=== PATIENT | female | born 1975 | race Caucasian/White ===

== ENCOUNTER 2017-02-10 19:39 | Emergency (ER) | payer OTHER ==
[~2017-02-10] VITALS: Ht 167.6 cm; Wt 64.0 kg
[2017-02-10] MEDS ORDERED: SODIUM CHLORIDE 0.9% 1,000 ML IV ONE (20:20)
[2017-02-10 20:54] LABS: UCG SCREEN NEGATIVE
[2017-02-10 21:04] LABS: *AMPHETAMINES SCREEN URINE PRESUMTIVE POSITIVE (NEGATIVE); *BARBITURATES SCREEN URINE NEGATIVE (NEGATIVE); *BENZODIAZEPINES SCREEN URINE NEGATIVE (NEGATIVE); *COCAINE SCREEN URINE NEGATIVE (NEGATIVE); CANNABINOID URINE SCREEN NEGATIVE (NEGATIVE); METHADONE URINE SCREEN NEGATIVE (NEGATIVE); OPIATES URINE SCREEN NEGATIVE (NEGATIVE); PHENCYCLIDINE URINE SCREEN NEGATIVE (NEGATIVE)
[2017-02-10] MEDS ORDERED: LORAZEPAM 2MG/ML CPJ IV ONE (23:00)
[2017-02-11 04:52] VITALS: BP 134/80
== END 2017-02-11 06:11 | disposition home or self-care (01) ==
LOC: ER 20:20
DX: T43.621A Poisoning by amphetamines, accidental (unintentional), initial encounter (principal); F41.9 Anxiety disorder, unspecified; F31.9 Bipolar disorder, unspecified; Z59.0 Homelessness; Y92.89 Other specified places as the place of occurrence of the external cause
CPT/HCPCS: 36415; 80305; 81025; 96361; 96374; 99285; G0482; J2060; J7030; Z7610

== ENCOUNTER 2017-02-11 15:56 | Emergency (ER) | payer OTHER ==
[~2017-02-11] VITALS: Ht 162.6 cm; Wt 75.0 kg
[2017-02-11] MEDS ORDERED: MORPHINE SULFATE 4 MG/ML CPJ (NOT FOR IM USE) IV STA (16:30)
[2017-02-11] MEDS ORDERED: LORAZEPAM 2MG/ML CPJ IV ONE (16:30)
[2017-02-11] MEDS ORDERED: ONDANSETRON HCL 4MG/2ML VIAL IV STA (16:30)
[2017-02-11] MEDS ORDERED: SODIUM CHLORIDE 0.9% 1,000 ML IV ONE (16:30)
[2017-02-11 16:54] LABS: BASOPHILS % 0.3 % (0.0-2.0); EOSINOPHILS % 1.2 % (0.0-5.0); HEMATOCRIT. 33.5 % (36.0-48.0); HEMOGLOBIN. 11.1 g/dL (12.0-16.0); LYMPHOCYTES % 8.9 % (20.0-50.0); MEAN CORPUSCULAR HEMOGLOBIN 28.6 pg (28.0-32.0); MEAN CORPUSCULAR VOLUME 86.3 fL (81.0-99.0); MEAN PLATELET VOLUME 9.1 fl (7.4-10.4); NEUTROPHILS % 82.6 % (40.0-76.0); PLATELET 242 x1000/uL (130-400); RED BLOOD CELL COUNT 3.88 mill/uL (4.2-5.4); RED CELL DISTRIBUTION WIDTH 14.4 % (11.6-14.6)
[2017-02-11 16:59] LABS: CHLORIDE 103 mEq/L (98-107)
[2017-02-11 17:02] LABS: CARBON DIOXIDE 19 mEq/L (21-32)
[2017-02-11 17:04] LABS: D-DIMER 0.79 mg/L FEU (<0.50); INR 1.2; PARTIAL THROMBOPLASTIN TIME 29.9 sec (24.0-34.0)
[2017-02-11 17:06] LABS: AMMONIA 26 uMol/L (<32); HCG SCREEN NEGATIVE
[2017-02-11 17:10] LABS: CREATINE KINASE 193 IU/L (26-192); TROPONIN I < 0.02 ng/mL (0.00-0.04)
[2017-02-11] MEDS ORDERED: POTASSIUM CHLORIDE 20MEQ TABLET SR PO ONE (21:30)
[2017-02-11] MEDS ORDERED: DIPHENHYDRAMINE 50MG/ML VIAL IV ONE (23:00)
[2017-02-11] MEDS ORDERED: METHYLPREDNISOLONE SOD SUCC 125 MG/2 ML VIAL IV ONE (23:00)
[2017-02-12] MEDS ORDERED: LORAZEPAM 2MG/ML CPJ IV ONE (09:45)
[2017-02-12 16:28] VITALS: BP 121/77
== END 2017-02-12 16:29 | disposition home or self-care (01) ==
LOC: ER 16:05
DX: T43.621A Poisoning by amphetamines, accidental (unintentional), initial encounter (principal); E86.0 Dehydration; F17.200 Nicotine dependence, unspecified, uncomplicated; F31.9 Bipolar disorder, unspecified; R07.9 Chest pain, unspecified; F15.10 Other stimulant abuse, uncomplicated
CPT/HCPCS: 36415; 71010; 80053; 82140; 82550; 83605; 83690; 83880; 84443; 84484; 84703; 85025; 85379; 85610; 85730; 87040; 93005; 96361; 96374; 96375; 96376; 99285; 99406; J1200; J2060; J2270; J2405; J2930; J7030; Z7610